=== PATIENT | male | born 1985 | race Caucasian/White ===

== ENCOUNTER 2016-08-21 22:33 | Emergency (ER) | payer SELFPAY ==
[~2016-08-21] VITALS: Ht 170.2 cm; Wt 63.6 kg
[2016-08-21 22:39] VITALS: Ht 170.2 cm; Wt 63.6 kg
--- NOTE | 2016-08-22 01:19 | ERD ---
ER Documentation Chief Complaint Date/Time DATE: 08/22/16 TIME: 01:14 Chief Complaint Patient found sleeping on the ground near a sidewalk. ETOH, BIB RA 39 HPI This 30-year-old male presents to ER with alcohol intoxication. He was not found face down the street according to paramedics he was found sleeping in the grass near a sidewalk. Patient is awake and alert and oriented on arrival. He states that he was drinking alcohol and he got tired and he wanted to sleep on the ground. He denies any pain or trauma. He states that he just wants to go home. Is feeling fine earlier today when he started drinking still feels well. ROS All systems reviewed and are negative except as per history of present illness. Medications Home Meds No Active Prescriptions or Reported Meds Allergies Allergies: Coded Allergies: No Known Allergy (Unverified , 08/21/16) Physical Exam Vitals Vital Signs Date Time Temp Pulse Resp B/P Pulse Ox O2 Delivery O2 Flow Rate FiO2 08/21/16 22:39 97.4 81 18 115/68 98 Physical Exam Const: [] No distress Head: Atraumatic Eyes: Normal Conjunctiva ENT: Normal External Ears, Nose and Mouth. Neck: Full range of motion..~ No meningismus. Resp: Clear to auscultation bilaterally Cardio: Regular rate and rhythm, no murmurs Abd: Soft, non tender, non distended. Normal bowel sounds Skin: No petechiae or rashes Back: No midline or flank tenderness Ext: No cyanosis, or edema Neur: Awake and alert and oriented 3, slightly slurred speech, para nerves II through XII intact, finger-nose test normal. Gait not tested Psych: Normal Mood and Affect Procedures/MDM Intoxicated male denies any other medical problems. No signs or reports of trauma. He was monitored in the emergency room for 3 hours. He is awake alert oriented states that he wants to go home. No longer has slurred speech. Repeat neuro exam was done patient is clinically sober with a normal gait walking to the bathroom and back. I counseled him on alcohol abuse for several minutes at the bedside. Giving him primary care follow-up in the next 2-3 days and return precautions to the ER. He agrees not to drink anymore tonight.. Departure Diagnosis: Primary Impression: Alcohol intoxication Condition: Stable Patient Instructions: Alcohol Intoxication, Alcohol Abuse Referrals: [facility] YOU HAVE RECEIVED A MEDICAL SCREENING EXAM AND THE RESULTS INDICATE THAT YOU DO NOT HAVE A CONDITION THAT REQUIRES URGENT TREATMENT IN THE EMERGENCY DEPARTMENT. FURTHER EVALUATION AND TREATMENT OF YOUR CONDITION CAN WAIT UNTIL YOU ARE SEEN IN YOUR DOCTORS OFFICE WITHIN THE NEXT 1-2 DAYS. IT IS YOUR RESPONSIBILITY TO MAKE AN APPOINTMENT FOR FOLOW-UP CARE. IF YOU HAVE A PRIMARY DOCTOR --you should call your primary doctor and schedule an appointment IF YOU DO NOT HAVE A PRIMARY DOCTOR YOU CAN CALL OUR PHYSICIAN REFERRAL HOTLINE AT IF YOU CAN NOT AFFORD TO SEE A PHYSICIAN YOU CAN CHOSE FROM THE FOLLOWING [facility] [address] [facility]. [facility] [address] [facility]. [facility] [address] [facility]. [facility] [address] [facility]. [facility] [address] [facility]. [facility]. [address] Additional Instructions: Llame al doctor MAANA y stephanie malika CARO PARA DENTRO DE [address] [place].Dgale a la secretaria que nosotros le instruimos hacer esta caro.Avise o llame si sales condicin se empeora antes de la caro. Regresa aqui si peor o no mejor. TORI FOSTER DO Aug 22, 2016 01:19
[2016-08-22 01:27] VITALS: BP 125/68; PULSE 100; RESP 23
== END 2016-08-22 01:27 | disposition home or self-care (01) ==
LOC: E/R 22:33
DX: F10.129 Alcohol abuse with intoxication, unspecified (principal); R40.2122 Coma scale, eyes open, to pain, at arrival to emergency department; R40.2232 Coma scale, best verbal response, inappropriate words, at arrival to emergency department; R40.2352 Coma scale, best motor response, localizes pain, at arrival to emergency department
CPT/HCPCS: 99283